=== PATIENT | male | born 1975 | race Two or more races ===

== ENCOUNTER 2018-01-13 15:27 | Inpatient (IN) | payer OTHER ==
[~2018-01-13] VITALS: Ht 180.3 cm; Wt 93.4 kg
[~2018-01-13 15:27] MED LIST: NORVASC5 MG
[2018-01-15] MEDS ORDERED: AVAPRO150 MG PO (09:56)
== END 2018-01-15 18:20 | disposition home or self-care (01) | DRG 311 ==
LOC: ER 15:27 → MEDI 01-14 11:22
PROC: B246ZZZ Ultrasonography of Right and Left Heart (ICD-10-PCS; principal; 2018-01-15)
PROC: C23GYZZ Positron Emission Tomographic (PET) Imaging of Myocardium using Other Radionuclide (ICD-10-PCS; 2018-01-15)
DX: I24.8 Other forms of acute ischemic heart disease (principal); I10 Essential (primary) hypertension; Z72.0 Tobacco use

== ENCOUNTER 2023-10-17 10:37 | Outpatient (CLI) | payer OTHER ==
[~2023-10-17 10:37] MED LIST changes: +AVAPRO150 MG PO
== END 2023-10-17 11:05 | disposition home or self-care (01) ==
LOC: MRI 10:37
PROVIDERS: ATTEND Surgery
DX: K80.20 Calculus of gallbladder without cholecystitis without obstruction (principal)
CPT/HCPCS: 74181